=== PATIENT | female | born 1990 | race Caucasian/White ===

== ENCOUNTER 2018-02-20 06:57 | Day surgery (SDC) | payer OTHER | END 2018-02-20 19:15 | disposition home or self-care (01) | LOC: CIR.AMB 06:57 | DX: Z30.2 Encounter for sterilization (principal); Z64.1 Problems related to multiparity ==

== ENCOUNTER 2018-07-04 15:39 | Emergency (ER) | payer OTHER ==
[~2018-07-04] VITALS: Ht 152.4 cm; Wt 43.5 kg
== END 2018-07-04 17:47 | disposition home or self-care (01) ==
LOC: ER 15:39
DX: N75.8 Other diseases of Bartholin's gland (principal)